=== PATIENT | male | born 1960 | race Caucasian/White ===

== ENCOUNTER 2019-10-14 13:57 | Emergency (ER) | payer BC ==
[~2019-10-14] VITALS: Ht 182.9 cm; Wt 104.3 kg
[2019-10-14] MEDS ORDERED: RALTEGRAVIR POTASSIUM 400 MG TABLET PO ONE (14:30)
--- NOTE | 2019-10-14 15:02 | NUR ---
PT IS IN ROOM #1A. DR CONKLIN EVALUATED THE PT.
--- NOTE | 2019-10-14 15:40 | NUR ---
PT WAS D/C'd TO HOME. D/C INSTRUCTIONS GIVEN TO THE PT BY DR CONKLIN.
[2019-10-14 15:44] VITALS: BP 142/82
== END 2019-10-14 15:45 | disposition home or self-care (01) ==
LOC: ER 13:58
DX: S30.21XA Contusion of penis, initial encounter (principal); Z88.0 Allergy status to penicillin; X58.XXXA Exposure to other specified factors, initial encounter; Y93.89 Activity, other specified; Y92.89 Other specified places as the place of occurrence of the external cause; Y99.8 Other external cause status
CPT/HCPCS: 76870; A4663